=== PATIENT | female | born 1950 | race Caucasian/White ===

== ENCOUNTER 2018-04-10 12:04 | Day surgery (SDC) | payer MEDICARE, BC ==
[2015-03-24 12:00] VITALS: O2SAT 98
[2018-04-10] MEDS ORDERED: TRIAMCINOLONE ACETONIDE 40 MG/ML SUS ONE (12:30)
[2018-04-10] MEDS ORDERED: BUPIVACAINE HCL 0.25% MPF 30 ML SOL INFIL ONE (12:30)
[2018-04-10 12:41] VITALS: RESP 12
[2018-04-10 13:12] VITALS: BP 121/68; PULSE 68; TEMP 97.8
== END 2018-04-10 13:10 | disposition home or self-care (01) | DRG 556 ==
LOC: SURG 12:04
PROVIDERS: ATTEND Nurse Anesthetist, Certified Registered
DX: M25.511 Pain in right shoulder (principal); M19.011 Primary osteoarthritis, right shoulder
CPT/HCPCS: 76000; J3300

== ENCOUNTER 2018-08-06 13:12 | Day surgery (SDC) | payer MEDICARE, BC ==
[2018-08-06] MEDS ORDERED: BUPIVACAINE HCL 0.25% MPF 30 ML SOL INFIL ONE (14:08)
[2018-08-06] MEDS ORDERED: TRIAMCINOLONE ACETONIDE 40 MG/ML SUS ONE (14:08)
[2018-08-06 14:30] VITALS: BP 112/58; PULSE 68; RESP 20; TEMP 97.1; O2SAT 96
== END 2018-08-06 14:41 | disposition home or self-care (01) | DRG 93 ==
LOC: SURG 13:12
PROVIDERS: ATTEND Nurse Anesthetist, Certified Registered
DX: R20.2 Paresthesia of skin (principal)
CPT/HCPCS: J3300

== ENCOUNTER 2018-10-08 12:01 | Day surgery (SDC) | payer MEDICARE, BC ==
[2018-10-08] MEDS ORDERED: DIAZEPAM 5 MG TAB ONE (12:18)
[2018-10-08] MEDS ORDERED: DEXAMETHASONE SOD PHOS PF 10 MG/ML SOL IJ ONE (12:46)
[2018-10-08] MEDS ORDERED: BUPIVACAINE HCL 0.25% MPF 30 ML SOL INFIL ONE (12:46)
[2018-10-08 13:28] VITALS: BP 131/74; PULSE 68; RESP 16; TEMP 98.4; O2SAT 96
== END 2018-10-08 13:31 | disposition home or self-care (01) | DRG 552 ==
LOC: SURG 12:01
PROVIDERS: ATTEND Nurse Anesthetist, Certified Registered
DX: M51.17 Intervertebral disc disorders with radiculopathy, lumbosacral region (principal); M48.061 Spinal stenosis, lumbar region without neurogenic claudication
CPT/HCPCS: A9270-GY; J1100